=== PATIENT | female | born 1995 | race Caucasian/White ===

== ENCOUNTER 2021-09-25 14:23 | Outpatient (CLI) | payer MEDICAID ==
[~2021-09-25] VITALS: Ht 162.6 cm; Wt 97.7 kg
[2021-09-25] MEDS ORDERED: PRENATAL TABLET PO (14:59)
[2021-09-25] MEDS ORDERED: OXYCONTIN 10MG10 MG PO (14:59)
[2021-09-25 15:00] VITALS: BP 125/78; PULSE 78; TEMP 98
[2021-09-25] MEDS ORDERED: TYLENOL 500MG500 MG PO (15:00)
--- NOTE | 2021-09-25 15:00 | NUR ---
1440- Pt arrives on unit, ambulatory with complaints of lower back contractions and vaginal burning. PT changes into gown. 1443- Pt into bed, EFM and TOCO on and tracing. VSS. Pt states she has been having contractions in her lower back and vaginal burning since last night. Denies VB, LOF. +Fm per Pt. Assessment completed. 1505- SVE by this RN. Pt denies burning pain with exam. States burning is more interior. 3-4/75/-3.
--- NOTE | 2021-09-25 16:15 | NUR ---
1602- SVE unchanged. EFM and TOCO off. Labor precautions explained, Pt denies questions. Pt up to change into street clothes. 1615- Discharge paperwork given and explained. Pt ambulates off unit in stable condition.
== END 2021-09-25 16:15 | disposition home or self-care (01) ==
LOC: LDRO 14:23
DX: O62.9 Abnormality of forces of labor, unspecified (principal); O26.893 Other specified pregnancy related conditions, third trimester; M54.9 Dorsalgia, unspecified; N89.8 Other specified noninflammatory disorders of vagina; Z3A.37 37 weeks gestation of pregnancy

== ENCOUNTER 2021-10-06 07:13 | Inpatient (IN) | payer MEDICAID ==
[~2021-10-06] VITALS: Ht 162.6 cm; Wt 97.7 kg
[~2021-10-06 07:13] MED LIST: OXYCONTIN 10MG10 MG PO; PRENATAL TABLET PO; TYLENOL 500MG500 MG PO
[2021-10-07] VITALS (27 sets, daily range): BP systolic 114–166; BP diastolic 65–87; PULSE 63–106; TEMP 97.6–98.2
--- NOTE | 2021-10-07 07:30 | NUR ---
0630 PATIENT HERE FOR INDUCTION OF LABOR. EFM ON FHT 130 GOOD ACCELERATIONS NOTED AND BABY VEREY ACTIVE. ASSESSMENT COMPLETED. CONSENTS SIGNED. IV STARTED IN LEFT WRIST TOLERATES WELL. DENIES NEEDS AT THIS TIME
[2021-10-07 07:37] LABS: BASO % 0.4 % (0.0-2.0); EOS # 0.1 K/mm3 (0.0-0.7); EOS % 1.5 % (0.0-4.0); GRAN # 6.8 K/mm3 (1.4-6.5); GRAN % 72.8 % (42.2-75.2); HEMATOCRIT 31.6 % (37.0-47.0); HEMOGLOBIN 10.8 g/dl (12.5-16.0); LYMPH # 1.6 K/mm3 (1.2-3.4); LYMPH % 17.6 % (20.0-51.0); MEAN CELL VOLUME 86 fl (80.0-100.0); MEAN CORPUSCULAR HEMOGLOBIN 29 pg (27-31); MEAN CORPUSCULAR HGB CONC 34 g/dl (33.0-37.0); MEAN PLATELET VOLUME 9.8 fl (7.4-10.4); MONO # 0.7 K/mm3 (0.1-0.6); MONO % 7.3 % (1.7-9.3); PLATELET COUNT 252 K/mm3 (130-400); RED BLOOD COUNT 3.69 M/mm3 (4.10-5.30); REDCELL DISTRIBUTION WIDTH-CV 12.3 % (11.5-14.5)
--- NOTE | 2021-10-07 07:47 | NUR ---
[address] BOOTH
--- NOTE | 2021-10-07 10:34 | NUR ---
1010 AILYN KENDRICK SCHEDULING ANALYST AT BEDSIDE FOR EPIDURAL PLACEMENT. SITS UP ON EDGE OF BED. PATIENT TOLERAES WELL. SEE SCHEDULING ANALYST NOTES FOR QUESTIONS
--- NOTE | 2021-10-07 11:29 | NUR ---
[address] HAZEL CALLED AND UPDATED. ORDERS TO CALL DR RAE AND LET HIM KNOW THAT SHE IS SCRUBBED IN SURGERY. 1050 PATIENT CALLS OUT AND FEELS URGE TO PUSH.
--- NOTE | 2021-10-07 11:35 | NUR ---
1100 A [place] CHARGE NURSE CALLS DR RAE, DR PALOMARES TO COME FOR DELIVERY. UNAVAILABLE AT THIS TIME. PATIENT FEELING URGE TO PUSH. ISIS WITH DISCOMFORT.
--- NOTE | 2021-10-07 11:37 | NUR ---
1104 DR HAZEL AT BEDSIDE. 1108 PATIENT PUSHES WITH CONTRACTION AND DELIVERS BABY BOY . CORD CLAMPED AND CUT BY . BABY TO MOMS CHEST SKIN TO SKIN. PATIENT TOLERATE WELL. SMALL REPAIR DONE BY 1110 PLACENTA DELIVERED AT THIS TIME BY DR HAZEL AND PITOCIN STARTED AT 333/PROTOCOL.
[2021-10-08 00:30] VITALS: BP 124/69; PULSE 89; TEMP 98
[2021-10-08] MEDS ORDERED: IBU800 M1 PO (10:05)
[2021-10-08] MEDS ORDERED: ROXICODONE 55 MG/TAB PO (10:07)
[2021-10-08] MEDS ORDERED: TYLENOL 325MG325 MG PO (10:07)
--- NOTE | 2021-10-08 11:56 | NUR ---
1200 DAD TO WATCH DISCHARGE VIDEO SINCE THIS IS FIRST CHILD.
== END 2021-10-08 13:30 | disposition home or self-care (01) | DRG 806 ==
LOC: LDR 10-07 06:08 → OB 10-07 06:08 → LDR 10-07 07:12 → OB 10-07 14:50
PROVIDERS: ADMIT Student in an Organized Health Care Education/Training Program
PROC: 10E0XZZ Delivery of Products of Conception, External Approach (ICD-10-PCS; principal; 2021-10-07)
PROC: 10907ZC Drainage of Amniotic Fluid, Therapeutic from Products of Conception, Via Natural or Artificial Opening (ICD-10-PCS; 2021-10-07)
PROC: 3E033VJ Introduction of Other Hormone into Peripheral Vein, Percutaneous Approach (ICD-10-PCS; 2021-10-07)
PROC: 0HQ9XZZ Repair Perineum Skin, External Approach (ICD-10-PCS; 2021-10-07)
DX: O99.214 Obesity complicating childbirth (principal); F11.20 Opioid dependence, uncomplicated; Z37.0 Single live birth; O99.344 Other mental disorders complicating childbirth; F32.A Depression, unspecified; O99.52 Diseases of the respiratory system complicating childbirth; J45.909 Unspecified asthma, uncomplicated; O75.89 Other specified complications of labor and delivery; H91.90 Unspecified hearing loss, unspecified ear; O99.324 Drug use complicating childbirth; M54.50 Low back pain, unspecified; O70.0 First degree perineal laceration during delivery; G89.29 Other chronic pain; O26.893 Other specified pregnancy related conditions, third trimester; Z67.11 Type A blood, Rh negative; Z3A.39 39 weeks gestation of pregnancy; Z23 Encounter for immunization
CPT/HCPCS: J2590; J2791; J7120

== ENCOUNTER → 2022-07-07 | Outpatient (CLI) | payer MEDICAID ==
[~2022-07-07] MED LIST changes: +IBU800 M1 PO; +ROXICODONE 55 MG/TAB PO; +TYLENOL 325MG325 MG PO
== END ==
LOC: MHCPAIN 10:25
DX: M47.896 Other spondylosis, lumbar region (principal); M54.16 Radiculopathy, lumbar region; M53.3 Sacrococcygeal disorders, not elsewhere classified
CPT/HCPCS: G0463